=== PATIENT | female | born 1975 | race Caucasian/White ===

== ENCOUNTER 2018-06-16 13:46 | Emergency (ER) | payer OTHER ==
[~2018-06-16] VITALS: Ht 157.5 cm; Wt 78.0 kg
[2018-06-16 14:04] VITALS: Ht 157.5 cm; Wt 78.0 kg
[2018-06-16 16:41] VITALS: BP 131/80
== END 2018-06-16 16:41 | disposition home or self-care (01) ==
LOC: ED 13:46
DX: S83.91XA Sprain of unspecified site of right knee, initial encounter (principal); Z87.19 Personal history of other diseases of the digestive system; Z90.49 Acquired absence of other specified parts of digestive tract; X50.1XXA Overexertion from prolonged static or awkward postures, initial encounter; Y93.89 Activity, other specified; Y92.000 Kitchen of unspecified non-institutional (private) residence as the place of occurrence of the external cause; Y99.8 Other external cause status
CPT/HCPCS: Q0162